=== PATIENT | female | born 1955 | race Caucasian/White ===

== ENCOUNTER → 2019-08-04 | Outpatient (CLI) | payer MEDICARE ==
[~2019-08-04] MED LIST: CYMB1CAP5 OR; DYAZ37.5 OR; LEVO75TA2 OR; LUNE2TAB OR; LUVOX; METO-743 OR; MULTIVIT; SERO1TAB OR; SKEL800T5 OR; TRAZ50TA OR; VIT D 2000
[2019-08-04 13:25] LABS: ALBUMIN 3.8 GM/DL (3.2-5.2); ALT/SGPT 22 U/L (12-78); AMYLASE 32 U/L (25-115); BILIRUBIN,DIRECT 0.1 MG/DL (0.0-0.2); BILIRUBIN,TOTAL 0.3 MG/DL (0.2-1.0); IMMUNOGLOBULIN A 63.7 MG/DL (70-400); IRON (FE) 38 UG/DL (50-170); LIPASE 75 U/L (73-393); PERCENT SATURATION 12.8 % (13.2-45.0); TOTAL IRON BINDING CAPACITY 296 UG/DL (250-450); TOTAL PROTEIN 6.6 GM/DL (6.4-8.2); TRIGLYCERIDES LEVEL 160 MG/DL (<150)
[2019-08-05 11:23] LABS: HEPATITIS B SURFACE ANTIBODY NEGATIVE (POSITIVE)
[2019-08-05 11:35] LABS: HEPATITIS B SURFACE ANTIGEN NEGATIVE (NEGATIVE)
[2019-08-05 12:03] LABS: HEPATITIS C VIRUS ABY INDEX < 0.0 INDEX (<0.8)
[2019-08-07 00:07] LABS: ANCA-ATYPICAL <1:20 titer (Neg:<1:20); ANTI-MITOCHONDRIAL ANTIBODY <20.0 Units (0.0-20.0); ANTINUCLEAR ANTIBODIES DIRECT Negative (Negative); CYTOPLASMIC NEUTROP AB ANCA-C <1:20 titer (Neg:<1:20); HEPATITIS A IgG TOTAL Positive (Negative); LIVER-KIDNEY MICROSOMAL ABY <20.1 Units (0.0-20.0); PERINUCLEAR AB ANCA-P <1:20 titer (Neg:<1:20); TISSUE TRANSGLUTAMINASE IgA <2 U/mL (0-3)
== END ==
LOC: M LAB 12:22
PROVIDERS: ATTEND Internal Medicine Gastroenterology
DX: R11.2 Nausea with vomiting, unspecified (principal); R19.7 Diarrhea, unspecified; Z79.899 Other long term (current) drug therapy; Z88.1 Allergy status to other antibiotic agents

== ENCOUNTER → 2019-08-09 | Outpatient (REF) | payer MEDICARE | LOC: M LAB REF 14:16 | PROVIDERS: ATTEND Internal Medicine Gastroenterology | DX: R11.2 Nausea with vomiting, unspecified (principal); R19.7 Diarrhea, unspecified ==

== ENCOUNTER → 2019-10-21 | Outpatient (CLI) | payer MEDICARE ==
--- NOTE | 2019-10-21 11:57 | REP ---
MAXILLOFACIAL CT STUDY WITHOUT CONTRAST: HISTORY: Atypical facial pain. CT FINDINGS: Small frontal sinuses are clear. Ethmoid and sphenoid air cells are clear. The maxillary sinuses are free of mucosal thickening as well. Mastoid aeration is normal and symmetric. Internal auditory canals are symmetric. Middle ear cavities are aerated bilaterally. Vestibular and cochlear apparatus appear intact. Deep facial soft tissues are unremarkable and symmetric. The visualized intracranial soft tissues are unremarkable. There are mild degenerative changes at C1-2 in the upper cervical spine. There is narrowing and some spurring affecting the temporomandibular joints bilaterally. The bony nasal septum is essentially midline. Nasal turbinate soft tissues are symmetric and unremarkable. The uncinate processes are not seen on either side, question previous uncinectomy. Ostiomeatal complexes are otherwise widely patent. IMPRESSION: Bilateral osteoarthritis of the temporomandibular joints. Question previous uncinate process resection bilaterally versus normal variant thinning. No evidence of paranasal sinus disease. Electronically Signed by Pietro Patel MD 10/21/2019 12:35 P
== END ==
LOC: M RAD 10:12
PROVIDERS: ATTEND Specialist
DX: M26.69 Other specified disorders of temporomandibular joint (principal)

== ENCOUNTER → 2019-12-06 | Outpatient (CLI) | payer MEDICARE ==
[~2019-12-06] MED LIST changes: +BEANTAB8 PO; +CBD OIL; +CO Q10CA PO; +COLA100C5 PO; +COQ1200C PO; +D 1010004 PO; +DICY1CAP8 PO; +FLON1SPR; +FLUT15.820; +GAVICHW PO; +GLIP10TA PO; +IMIT100T PO; +KLON0.5T PO; +LEVO112T2 PO; +METO1TAB7 PO; +METO37.5 PO; +OMEP10CASR PO; +PATIENT COMMENT; +POTA10TA14 PO; +PRAZ5CAP PO; +SAVE50TA PO; +SIMV40TA20 PO; +SPIR-10 PO; +SYNT100T PO; +TOPA50TA8 PO; +TRIA37.5 PO; +VIIB40TA PO; +WELLTAB40 PO
== END ==
LOC: M LABSMTC 11:41
PROVIDERS: ATTEND Internal Medicine Gastroenterology
DX: Z01.818 Encounter for other preprocedural examination (principal); Z11.59 Encounter for screening for other viral diseases
CPT/HCPCS: C9803; U0003

== ENCOUNTER 2019-12-11 10:06 | Day surgery (SDC) | payer MEDICARE ==
[~2019-12-11] VITALS: Ht 165.1 cm; Wt 74.8 kg
[~2019-12-11 10:06] MED LIST changes: -BEANTAB8 PO; -COQ1200C PO; -FLUT15.820; -GAVICHW PO; -IMIT100T PO; -METO1TAB7 PO; +NS 1,000 ML IV ONE; -PATIENT COMMENT; -SYNT100T PO
[2019-12-11] MEDS ORDERED: LIDOCAINE 2% 100MG/5ML SDV (FOR ANES.) As Ordered ONE (10:52)
[2019-12-11] MEDS ORDERED: propofoL 200 MG/20 ML VIAL As Ordered ONE ×2 (10:52→11:22)
[2019-12-11] MEDS ORDERED: fentaNYL 100 MCG/2 ML INJECTION (J3010) As Ordered ONE (10:59)
--- NOTE | 2019-12-11 11:07 | ROOR ---
Patient Name: Cathie De La Paz Procedure Date: 12/11/2019 10:49 AM Date of : 1955 Age: 64 Room: [facility] Gender: Female Note Status: Finalized Procedure: Upper GI endoscopy Indications: Heartburn, Endoscopy to assess diarrhea in patient suspected of having disease of the small-bowel Providers: Caleb SPEARS MD Referring MD: Rodrigo WOLFF MD Requesting Provider: Medicines: Monitored Anesthesia Care Complications: No immediate complications. Procedure: Pre-Anesthesia Assessment: - The heart rate, respiratory rate, oxygen saturations, blood pressure, adequacy of pulmonary ventilation, and response to care were monitored throughout the procedure. The Endoscope was introduced through the mouth, and advanced to the second part of duodenum. The upper GI endoscopy was accomplished without difficulty. The patient tolerated the procedure well. Findings: The examined esophagus was normal. The Z-line was regular and was found 39 cm from the incisors. A single 5 mm sessile fundic gland polyp was found in the gastric fundus. The polyp was removed with a jumbo cold forceps. Resection and retrieval were complete. The entire examined stomach was normal. The examined duodenum was normal. Biopsies for histology were taken with a cold forceps for evaluation of celiac disease. Impression: - Normal esophagus. - Z-line regular, 39 cm from the incisors. - A single fundic gland polyp. Resected and retrieved. - Otherwise normal stomach. - Normal examined duodenum. Biopsied. Recommendation: - Observe patient's clinical course. - Continue present medications. - May use Gaviscon as needed in addition to Omeprazole twice a day. Caleb Spears MD Caleb SPEARS MD 12/11/2019 11:06:32 AM Electronically signed by Caelb SPEARS MD Number of Addenda: 0 Note Initiated On: 12/11/2019 10:49 AM Estimated Blood Loss: Estimated blood loss: none.
--- NOTE | 2019-12-11 11:31 | ROOR ---
Patient Name: Cathie De La Paz Procedure Date: 12/11/2019 10:50 AM Date of : 1955 Age: 64 Room: [facility] Gender: Female Note Status: Finalized Procedure: Colonoscopy Indications: Clinically significant diarrhea of unexplained origin, Change in bowel habits Providers: Caleb SPEARS MD Referring MD: Rodrigo WOLFF MD Requesting Provider: Medicines: Monitored Anesthesia Care Complications: No immediate complications. Procedure: Pre-Anesthesia Assessment: - The heart rate, respiratory rate, oxygen saturations, blood pressure, adequacy of pulmonary ventilation, and response to care were monitored throughout the procedure. The Colonoscope was introduced through the anus and advanced to the terminal ileum, with identification of the appendiceal orifice and IC valve. The colonoscopy was performed without difficulty. The patient tolerated the procedure well. The quality of the bowel preparation was fair. Findings: The perianal and digital rectal examinations were normal. Three sessile polyps were found in the ascending colon and cecum. The polyps were diminutive in size. These polyps were removed with a cold snare. Resection and retrieval were complete. Mild sigmoid diverticulosis and moderate internal hemorrhoids. Biopsies for histology were taken with a cold forceps for evaluation of microscopic colitis. The terminal ileum appeared normal. Impression: - Colon preparation was fair. - Three diminutive polyps in the ascending colon and in the cecum, removed with a cold snare. Resected and retrieved. - Mild sigmoid diverticulosis and moderate internal hemorrhoids. - The colon is otherwise normal. - The examined portion of the ileum was normal. - Biopsies were taken with a cold forceps for evaluation of microscopic colitis. - (Irritable Bowel Syndrome/IBS suspected.) Recommendation: - Repeat colonoscopy in 3 years because the bowel preparation was fair/suboptimal. - Repeat colonoscopy in 3 years for surveillance. - Telephone endoscopist for pathology results in 2 weeks. Caleb Spears MD Caleb SPEARS MD 12/11/2019 11:31:43 AM Electronically signed by Caleb SPEARS MD Number of Addenda: 0 Note Initiated On: 12/11/2019 10:50 AM Estimated Blood Loss: Estimated blood loss: none.
[2019-12-11 11:50] VITALS: BP 92/53
== END 2019-12-11 12:05 | disposition home or self-care (01) ==
LOC: M OPP 10:06
PROVIDERS: ATTEND Internal Medicine Gastroenterology
DX: D12.0 Benign neoplasm of cecum (principal); K57.30 Diverticulosis of large intestine without perforation or abscess without bleeding; R19.7 Diarrhea, unspecified; K31.7 Polyp of stomach and duodenum; R12 Heartburn; E11.9 Type 2 diabetes mellitus without complications; E03.9 Hypothyroidism, unspecified; K21.9 Gastro-esophageal reflux disease without esophagitis; Z79.899 Other long term (current) drug therapy; Z88.8 Allergy status to other drugs, medicaments and biological substances
CPT/HCPCS: 43239; 45380; 45385; 88305; J3010

== ENCOUNTER 2020-03-24 20:19 | Inpatient (IN) | payer MEDICARE ==
[~2020-03-24 20:19] MED LIST changes: -NS 1,000 ML IV ONE
[2020-03-24] MEDS ORDERED: HumaLOG INSULIN (NovoLOG) PER UNIT SC SCH (21:00)
[2020-03-24] MEDS ORDERED: DEXTROSE 50% 50 ML SYRINGE IV PRN (21:15)
[2020-03-24] MEDS ORDERED: MAALOX 30 ML SUSP *UDC PO PRN (21:15)
[2020-03-24] MEDS ORDERED: GLUCOSE 4GM CHEW TABLET PO PRN (21:15)
[2020-03-24] MEDS ORDERED: GLUCAGON INJ 1MG VIAL SC PRN (21:15)
[2020-03-24] MEDS ORDERED: MOM 30ML SUSPENSION UDC PO PRN (21:15)
[2020-03-24 22:40] VITALS: BP 115/78
--- NOTE | 2020-03-24 23:11 | HPEPDOC ---
[facility] Medical History & Physical Date of Admission Mar 24, 2020 Date of Service: Mar 24, 2020 Attending Physician: CHIRAG DEL RIO MD History and Physical TIME OF SERVICE: 1156 PM CHIEF COMPLAINT:Altered mental status HISTORY OF PRESENT ILLNESS: The majority of the history was obtained from ER staff. The patient was unresponsive at the time of my evaluation This 64-year-old female has been feeling depressed. Yesterday evening at around 3 PM she went to lie down. Her went to check on her, about 2-1/2 hours later and he found her in an unresponsive state. He didn't check her pulse, but he started CPR and [id number]. EMS was contacted and the automotive sales professional who was the first to arrive placed an AED on the patient's chest, which advised against administering any shocks. When EMS arrived, they did that she was breathing on her own and that she had a pulse. They gave her Narcan, but she remained altered. Per d/w Caleb Albarran PA-C the patient's vitals were wnl except for a RR of 8 . Her CBC, CMP, coags, ammonia and VBG, were unrevealing. The UA was positive for ketones, while the drug screen was positive for benzos which she takes chronically. Flumazenil was not given. The EKG showed normal sinus rhythm with a rate of 79, while CT of the head and chest x-ray were reported to be unremarkable. REVIEW OF SYSTEMS: uable to obtain because of the patient's mental status PAST MEDICAL/ SURGICAL HISTORY: CKD IIIB Chronic HTN Dyslipidemia BPV Migraines Hypothyroidism GERD DJD Irritable bowel syndrome with constipation Type 2 diabetes SOCIAL HISTORY: Former smoker Lives with her FAMILY HISTORY: Unobtainable ALLERGIES: Please see below. HOME MEDICATIONS: Please see below. PHYSICAL EXAMINATION: Vital Signs Date Time Temp Pulse Resp B/P (MAP) Pulse Ox O2 Delivery O2 Flow Rate FiO2 03/24/20 22:40 98.2 76 16 115/78 (90) 97 Room Air GEN: well-nourished / well developed/ NAD INTEGUMENT: not flushed/ not jaundice HEENT: lips acyanotic /mucus membranes moist and pink CVS: RRR/NMRG/ radial / no lower extremity edema LUNGS: lungs are clear to auscultation bilaterally on room air ABDOMEN: Contour (flat) / soft & she doesn't grimace with palpation MSK/EXTREMITIES: NCAT NEURO: resists opening eye-lids for pupil exam / left eye deviates to left when pryed open PSYCH: unarousable / grimaces with sternal rub LABORATORY DATA: 03/24/20 23:55 IMAGING: see HPI ASSESSMENT: is a 64-year-old with a history of CKD IIIB HTN, dyslipidemia, BPV, migraines, hypothyroidism, GERD and IDDM who presented to [facility] with altered mental status , unclear cause. She was transferred here for higher level of care. PLAN: 1. Encephalopathy Differential includes benzo OD, thyroid disorder B12 or B1 deficiency, post- ictal state, catatonia or ther cause TBD Plan: admit to medical floor/ neurochecks / f/u accuchecks B12, B1, TSH / continuous pulse ox day time team may consider ordering MRI brain w gadolinium to r/o brain mass, EEG and or Psych consult / hold sedating meds (clonazepam, bupropion, milnacipran, vilazodone, topiramate, dicyclomine) 2. NIDDM Plan: will start D5NS while NPO / diabetic diet when more alert / f/u accuchecks & A1C / hypoglycemia protocol / sliding scale insulin / hold glipizide 3. Depression Plan: hold bupropion & vilazodone until more alert 4. Chronic HTN Plan: metoprolol, spironolactone, triamterene, hydrochlorothiazide 5. Dyslipidemia Plan: Simvastatin 6. Migraines Plan: hold sumatriptan & topiramate until more alert 7. CKD IIIB Plan: f/u BMP 8. Hypothyroidism Plan: levothyroxine 9. GERD Plan: hold omeprazole until more alert 10. IBS-D Plan: hold dicyclomine until more alert DVT PROPHYLAXIS: lovenox DISPOSITION: home after more than 2 midnight's stay Home Medications Scheduled Eomig-L-Raogjrescpmou (Beano) 150 Unit Tablet, 2 TAB PO AC Bupropion HCl (Wellbutrin Xl) 300 Mg Tab.er.24h, 300 MG PO DAILY Cholecalciferol (Vitamin D3) (Vitamin D3) 25 Mcg Capsule, 25 MCG PO QHS Clonazepam (Klonopin) 0.5 Mg Tablet, 0.5 MG PO BID Docusate Sodium (Colace) 100 Mg Capsule, 100 MG PO BID Fluticasone Propionate (Fluticasone Propionate) 15.8 Ml [place].susp, 2 SPRAYS NA DAILY Glipizide (Glipizide) 10 Mg Tablet, 5 MG PO QHS Levothyroxine Sodium (Synthroid) 100 Mcg Tablet, 100 MCG PO DAILY Metoprolol Succinate (Metoprolol Succinate) 50 Mg Tab.er.24h, 50 MG PO DAILY Milnacipran HCl (Savella) 50 Mg Tablet, 50 MG PO BID Omeprazole (Omeprazole) 10 Mg Capsule.dr, 20 MG PO BID Potassium Chloride (Potassium Chloride) 10 Meq Tablet.er, 20 MEQ PO BID Prazosin Hcl (Prazosin HCl) 5 Mg Capsule, 5 MG PO QHS Simvastatin (Simvastatin) 40 Mg Tablet, 40 MG PO QHS Spironolactone (Spironolactone) 25 Mg Tablet, 25 MG PO DAILY Topiramate (Topamax) 50 Mg Tablet, 50 MG PO BID Triamterene/Hydrochlorothiazid (Triamterene-Hctz 37.5-25 mg Tb) 1 Each Tablet, 1 TAB PO DAILY Ubidecarenone (Co Q-10) 200 Mg Capsule, 200 MG PO QHS Vilazodone HCl (Viibryd) 40 Mg Tablet, 40 MG PO DAILY Scheduled PRN Dicyclomine HCl (Dicyclomine HCl) 10 Mg Capsule, 10 MG PO Q6H PRN for CRAMPS CAN TAKE EXTRA CAPSULE PER DOSE Mag/Aluminum/Sod Bicarb/Alginc (Gaviscon 80-14.2 mg Tab Chew) 1 Each Tab.chew, 2 TAB PO ACHS PRN for ACID REFLUX Sumatriptan Succinate (Imitrex) 100 Mg Tablet, 100 MG PO DAILY PRN for MIGRAINE Miscellaneous Medications [Patient Comment] PATIENT IS UNRESPONSIVE. MED REC COMPLETED VIA EXTERNAL MED HISTORY AND PATIENT MED LIST IN [facility] Allergies Coded Allergies: clarithromycin (Verified Allergy, Unknown, 12/09/19) A-FIB/CHADSVASC A-FIB History Current/History of A-Fib/PAF?: No Current PO Anticoag Therapy: No CHIRAG DEL RIO MD Mar 24, 2020 23:11
[2020-03-25] MEDS ORDERED: BEANTAB8 PO (00:19)
[2020-03-25] MEDS ORDERED: FLUT15.820 (00:19)
[2020-03-25] MEDS ORDERED: GAVICHW PO (00:19)
[2020-03-25] MEDS ORDERED: IMIT100T PO (00:19)
[2020-03-25] MEDS ORDERED: METO1TAB7 PO (00:19)
[2020-03-25] MEDS ORDERED: SYNT100T PO (00:19)
[2020-03-25] MEDS ORDERED: COQ1200C PO (00:19)
[2020-03-25] MEDS ORDERED: PATIENT COMMENT (00:21)
[2020-03-25 00:38] LABS: BLOOD UREA NITROGEN 18 MG/DL (7-18); CALCIUM LEVEL 9.1 MG/DL (8.8-10.2); CARBON DIOXIDE LEVEL 26 MEQ/L (21-32); CHLORIDE LEVEL 109 MEQ/L (98-107); CREATININE FOR GFR 0.89 MG/DL (0.55-1.30); GLOMERULAR FILTRATION RATE > 60.0 (>45); GLUCOSE, FASTING 79 MG/DL (70-100); POTASSIUM SERUM 3.9 MEQ/L (3.5-5.1); SODIUM LEVEL 144 MEQ/L (136-145); THYROID STIMULATING HORMONE 0.678 uIU/ML (0.358-3.740)
[2020-03-25 00:42] LABS: BASO # 0.1 10^3/uL (0.0-0.2); BASO % 0.8 % (0.0-1.0); EOS # 0.1 10^3/uL (0.0-0.5); EOS % 1.3 % (0.0-3.0); HEMATOCRIT 39.9 % (36.0-47.0); HEMOGLOBIN 12.7 g/dl (12.0-15.5); LYMPH # 2.5 10^3/uL (1.5-5.0); LYMPH % 28.9 % (24.0-44.0); MEAN CORPUSCULAR HEMOGLOBIN 30.4 pg (27.0-33.0); MEAN CORPUSCULAR HGB CONC 31.8 g/dl (32.0-36.5); MEAN CORPUSCULAR VOLUME 95.5 fl (80.0-96.0); MONO # 0.7 10^3/uL (0.0-0.8); MONO % 8.4 % (0.0-5.0); NEUTROPHILS # 5.2 10^3/uL (1.5-8.5); NEUTROPHILS % 60.2 % (36.0-66.0); PLATELET COUNT, AUTOMATED 214 10^3/uL (150-450); RED BLOOD COUNT 4.18 10^6/uL (4.00-5.40); WHITE BLOOD COUNT 8.6 10^3/uL (4.0-10.0)
[2020-03-25 00:43] LABS: HEMATOCRIT 39.9 % (36.0-47.0)
[2020-03-25] MEDS ORDERED: SUMAtriptan SUCCINATE 25 MG TAB PO PRN (01:30)
[2020-03-25] MEDS: D5W/0.9% SODIUM CHLORIDE 1,000 ML IV SCH ×2 (02:43→20:35)
[2020-03-25 06:00] VITALS: BP 121/72
[2020-03-25] MEDS ORDERED: LEVOTHYROXINE 100MCG TABLET (0.1MG) PO SCH (06:00)
[2020-03-25] MEDS ORDERED: LEVOTHYROXINE 75MCG TABLET (0.075MG) PO SCH (06:00)
[2020-03-25] MEDS: HumaLOG INSULIN (NovoLOG) PER UNIT SC SCH ×3 (06:00→17:25)
[2020-03-25] MEDS ORDERED: HumaLOG INSULIN (NovoLOG) PER UNIT SC SCH (07:30)
[2020-03-25 08:44] VITALS: BP 111/75
[2020-03-25] MEDS ORDERED: CYANOCOBALAMIN 1,000MCG/ML VIAL (J3420) IM SCH (09:00)
[2020-03-25] MEDS ORDERED: THIAMINE 100 MG TAB PO SCH (09:00)
[2020-03-25] MEDS ORDERED: DYAZIDE 37.5/25 CAP (TRIAM/HCTZ) PO SCH (09:00)
[2020-03-25] MEDS ORDERED: DOCUSATE SODIUM 100 MG CAP PO SCH (09:00)
[2020-03-25] MEDS ORDERED: FOLIC ACID 1 MG TAB PO SCH (09:00)
[2020-03-25] MEDS ORDERED: SPIRONOLACTONE 25 MG TAB PO SCH (09:00)
[2020-03-25] MEDS ORDERED: METOPROLOL SUCC (TopROL XL) 50MG **XL** TAB PO SCH (09:00)
[2020-03-25] MEDS ORDERED: ENOXAPARIN 40MG/0.4ML SYRINGE (J1650 PER 10MG) SC SCH (09:00)
[2020-03-25 09:05] VITALS: O2SAT 95
[2020-03-25 09:53] LABS: VITAMIN B12 LEVEL 209 PG/ML (247-911)
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
--- NOTE | 2020-03-25 11:20 | REP ---
INDICATION: ams. COMPARISON: None. TECHNIQUE: Helical scanning is acquired. 5 mm axial images were reformatted. Coronal MPR images were generated. FINDINGS: Bone window settings demonstrate an intact bony calvarium. There is no evidence of skull fracture or incidental bony calvarial lesion. The visualized paranasal sinuses appear clear. No intraorbital abnormality is seen. On soft tissue window setting images; the lateral, third, and fourth ventricles are normal in size and position. Stallworth-white differentiation pattern is normal above and below the tentorium. There are is no evidence of intracranial hemorrhage. No mass, edema, infarction, or midline shift is seen. No extra-axial fluid collection is appreciated. IMPRESSION: Negative noncontrast head CT. <Electronically signed by August Patel > 03/25/20 [id number]
--- NOTE | 2020-03-25 12:08 | REP ---
INDICATION: rib pain. COMPARISON: None. FINDINGS: The superior mediastinal structures are midline. The cardiac silhouette is unremarkable in size, shape, and position. The diaphragmatic surfaces of the lungs are regular, and the costophrenic angles are clear. The pulmonary bustamante are clear. The imaged osseous structures are intact. IMPRESSION: There is no acute cardiopulmonary disease. <Electronically signed by Morales Montelongo > 03/25/20 [id number]
[2020-03-25] MEDS: ACETAMINOPHEN TAB 650MG DOSE (2X325MG) PO PRN ×2 (13:28→20:36)
[2020-03-25 14:00] VITALS: BP 110/72
[2020-03-25] MEDS ORDERED: SIMVASTATIN 40 MG TAB PO SCH (21:00)
[2020-03-25 22:00] VITALS: BP 134/93
[2020-03-26] MEDS: HumaLOG INSULIN (NovoLOG) PER UNIT SC SCH
--- NOTE | 2020-03-26 03:14 | DS.PDOC ---
Discharge Summary General Date of Admission Mar 25, 2020 at 14:42 Date of Discharge Mar 26 2020 @ 220am Attending Physician: LAKESHA JUDD MD Discharge Summary PROCEDURES PERFORMED DURING STAY: [None]. ADMITTING DIAGNOSES: 1. Encephalopathy - Differential includes benzo OD, thyroid disorder B12 or B1 deficiency, post-ictal state, catatonia or ther cause TBD 2. NIDDM 3. Depression 4. Chronic HTN 5. Dyslipidemia 6. Migraines 7. CKD IIIB 8. Hypothyroidism 9. GERD 10. IBS-D DISCHARGE DIAGNOSES: 1. Encephalopathy possibly 2/2 Catatonia vs Benzo OD -resolved 2. Transient amnesia - resolved 3. B12 deficiency 4. NIDDM 5. Depression 6. Chronic HTN 7. Dyslipidemia 8. Migraines 9. CKD IIIB 10. Hypothyroidism 11. GERD 12. IBS-D COMPLICATIONS/CHIEF COMPLAINT: Encephalopathy. HISTORY OF PRESENT ILLNESS: Per HPI "The majority of the history was obtained from ER staff. The patient was unresponsive at the time of my evaluation This 64-year-old female has been feeling depressed. Yesterday evening at around 3 PM she went to lie down. Her went to check on her, about 2-1/2 hours later and he found her in an unresponsive state. He didn't check her pulse, but he started CPR and [id number]. EMS was contacted and the who was the first to arrive placed an AED on the patient's chest, which advised against administering any shocks. When EMS arrived, they did that she was breathing on her own and that she had a pulse. They gave her Narcan, but she remained altered. Per d/w Caleb Albarran PA-C at [facility] the patient's vitals were wnl except for a RR of 8. Her CBC, CMP, coags, ammonia and VBG, were unrevealing. The UA was positive for ketones, while the drug screen was positive for benzos which she takes chronically. Flumazenil was not given. The EKG show ed normal sinus rhythm with a rate of 79, while CT of the head and chest x-ray were reported to be unremarkable." HOSPITAL COURSE: She was transferred from [facility] to [facility] and admitted to the medical floor. Repeat chest xray and CT of the head were unrevealing. Repeat blood work was remarkable for B12 deficiency. On the morning of Mar 25 she woke- up was noted to be conversational, but couldn't remember how she came to the hospital, or that she was . Just after midnight on Mar 26 she was able to recall all events in detail leading up to her hospital admission, including the time that she went to take a nap, that her and a business analysis analyst tried CPR, and various people she encountered at [facility] and [facility]. She reported that she wanted to leave AMA because of her treatment during her stay in the hospital; she denied SI or HI. She had tried to call her but there was no response. She also called her daughter who declined to pick her up. She verbalized understanding the risks of leaving AMA including but not limited to reoccurrence of the catatonic episode, and hypothermia because she didn't have a means of transport home. We also informed her that she still had an MRI of the brain and potential Neuro and Psych evaluations pending. She declined to sign the AMA form. She didn't have a clear plan in terms of how she was going to walk home and was only dressed in a hospital t-shirt, hospital pants and socks. Prior to allowing her to leave I discussed her case with and to determine if she had enough capacity to leave AMA the patient absconded. Due to concerns for her safety and health while she was attempting to walk home in the dark in the cold with inadequate clothing we called the police to bring her back to the hospital. DISCHARGE MEDICATIONS: Please see below. ALLERGIES: Please see below. PHYSICAL EXAMINATION ON DISCHARGE: VITAL SIGNS: Please see below. GENERAL:anxious/ teary NEUROLOGICAL EXAMINATION: gait normal PSYCHIATRIC EXAMINATION: A&O to person and place / able to recall all events, various people she encountered and time line of events LABORATORY DATA: Please see below. IMAGING: CT HEAD 03.25.20 "IMPRESSION:Negative noncontrast head CT." CHEST XRAY 03.25.20 "IMPRESSION: There is no acute cardiopulmonary disease." PROGNOSIS:guarded DISCHARGE PLAN: left AMA DISPOSITION: Against Medical Advice. ITEMS TO FOLLOWUP ON ON OUTPATIENT: 1. Depression 2. Possible Benzo OD 3. Possible Catatonia 4. B12 deficiency DISCHARGE CONDITION: [Stable]. TIME SPENT ON DISCHARGE: Approximately 60 min Vital Signs/I&Os Vital Signs Date Time Temp Pulse Resp B/P (MAP) Pulse Ox O2 Delivery O2 Flow Rate FiO2 03/25/20 22:00 98.4 98 16 134/93 (107) 99 Room Air I&O- Last 24 Hours up to 6 AM 03/26/20 06:00 Intake Total 300 ml Output Total 650 ml Balance -350 ml Laboratory Data Labs 24H Laboratory Tests 2 03/25/20 05:49: Bedside Glucose (Misc Panel) 93 03/25/20 06:28: 03/25/20 11:56: Bedside Glucose (Misc Panel) 98 03/25/20 16:37: Bedside Glucose (Misc Panel) 105 03/25/20 23:51: Bedside Glucose (Misc Panel) 110 FSBS Laboratory Tests Test 03/25/20 05:49 03/25/20 11:56 03/25/20 16:37 03/25/20 23:51 Range/Units Bedside Glucose (Misc Panel) 93 98 105 110 80-115 MG/DL Discharge Medications Scheduled Buvme-D-Wxsvtxzuxdpfb (Beano) 150 Unit Tablet, 2 TAB PO AC, (Reported) Bupropion HCl (Wellbutrin Xl) 300 Mg Tab.er.24h, 300 MG PO DAILY, (Reported) Cholecalciferol (Vitamin D3) (Vitamin D3) 25 Mcg Capsule, 25 MCG PO QHS, (Reported) Clonazepam (Klonopin) 0.5 Mg Tablet, 0.5 MG PO BID, (Reported) Docusate Sodium (Colace) 100 Mg Capsule, 100 MG PO BID, (Reported) Fluticasone Propionate (Fluticasone Propionate) 15.8 Ml [place].susp, 2 SPRAYS NA DAILY, (Reported) Glipizide (Glipizide) 10 Mg Tablet, 5 MG PO QHS, (Reported) Levothyroxine Sodium (Synthroid) 100 Mcg Tablet, 100 MCG PO DAILY, (Reported) Metoprolol Succinate (Metoprolol Succinate) 50 Mg Tab.er.24h, 50 MG PO DAILY, (Reported) Milnacipran HCl (Savella) 50 Mg Tablet, 50 MG PO BID, (Reported) Omeprazole (Omeprazole) 10 Mg Capsule.dr, 20 MG PO BID, (Reported) Potassium Chloride (Potassium Chloride) 10 Meq Tablet.er, 20 MEQ PO BID, (Reported) Prazosin Hcl (Prazosin HCl) 5 Mg Capsule, 5 MG PO QHS, (Reported) Simvastatin (Simvastatin) 40 Mg Tablet, 40 MG PO QHS, (Reported) Spironolactone (Spironolactone) 25 Mg Tablet, 25 MG PO DAILY, (Reported) Topiramate (Topamax) 50 Mg Tablet, 50 MG PO BID, (Reported) Triamterene/Hydrochlorothiazid (Triamterene-Hctz 37.5-25 mg Tb) 1 Each Tablet, 1 TAB PO DAILY, (Reported) Ubidecarenone (Co Q-10) 200 Mg Capsule, 200 MG PO QHS, (Reported) Vilazodone HCl (Viibryd) 40 Mg Tablet, 40 MG PO DAILY, (Reported) Scheduled PRN Dicyclomine HCl (Dicyclomine HCl) 10 Mg Capsule, 10 MG PO Q6H PRN for CRAMPS, (Reported) CAN TAKE EXTRA CAPSULE PER DOSE Mag/Aluminum/Sod Bicarb/Alginc (Gaviscon 80-14.2 mg Tab Chew) 1 Each Tab.chew, 2 TAB PO ACHS PRN for ACID REFLUX, (Reported) Sumatriptan Succinate (Imitrex) 100 Mg Tablet, 100 MG PO DAILY PRN for MIGRAINE, (Reported) Miscellaneous Medications [Patient Comment] , (Reported) PATIENT IS UNRESPONSIVE. MED REC COMPLETED VIA EXTERNAL MED HISTORY AND PATIENT MED LIST IN [place] [employer] Allergies Coded Allergies: clarithromycin (Verified Allergy, Unknown, 12/09/19) CHIRAG DEL RIO MD Mar 26, 2020 03:14
== END 2020-03-26 01:54 | disposition left against medical advice (07) | DRG 71 ==
LOC: M ED INP 22:25 → M MSPAV 22:26 → OBSVTOIN 03-25 14:42
PROVIDERS: ADMIT Internal Medicine; ATTEND Internal Medicine
DX: G93.40 Encephalopathy, unspecified (principal); F20.2 Catatonic schizophrenia; T42.4X4A Poisoning by benzodiazepines, undetermined, initial encounter; K21.9 Gastro-esophageal reflux disease without esophagitis; G43.909 Migraine, unspecified, not intractable, without status migrainosus; E78.5 Hyperlipidemia, unspecified; E11.9 Type 2 diabetes mellitus without complications; E53.8 Deficiency of other specified B group vitamins; N18.32 Chronic kidney disease, stage 3b; E03.9 Hypothyroidism, unspecified; F32.9 Major depressive disorder, single episode, unspecified; Z79.899 Other long term (current) drug therapy; Z88.8 Allergy status to other drugs, medicaments and biological substances

== ENCOUNTER 2020-03-26 03:25 | Emergency (ER) | payer MEDICARE ==
[~2020-03-26] VITALS: Ht 167.6 cm; Wt 73.6 kg
[~2020-03-26 03:25] MED LIST changes: +BEANTAB8 PO; +COQ1200C PO; +FLUT15.820; +GAVICHW PO; +IMIT100T PO; +METO1TAB7 PO; +PATIENT COMMENT; +SYNT100T PO
[2020-03-26 03:30] VITALS: BP 141/91
[2020-03-26] MEDS ORDERED: NS 1,000 ML IV ONE (04:15)
--- NOTE | 2020-03-26 04:45 | REPVR ---
PROCEDURE INFORMATION: Exam: CT Head Without Contrast Exam date and time: 03/26/2020 4:20 AM Age: 64 years old Clinical indication: Altered mental status/memory loss TECHNIQUE: Imaging protocol: Computed tomography of the head without contrast. Radiation optimization: All CT scans at this facility use at least one of these dose optimization techniques: automated exposure control; mA and/or kV adjustment per patient size (includes targeted exams where dose is matched to clinical indication); or iterative reconstruction. COMPARISON: CT Head without contrast 2020-03-25 10:58 FINDINGS: Brain: Diffuse mild cerebral age related volume loss. Mild patchy low attenuation in the white matter compatible with mild chronic small vessel ischemic disease. No midline shift, mass, fluid collection, or evidence of hemorrhage. Cerebral ventricles: Ventricular enlargement proportional to volume loss. Bones/joints: Unremarkable. No acute fracture. Paranasal sinuses: Visualized sinuses are unremarkable. No fluid levels. Mastoid air cells: Visualized mastoid air cells are well aerated. Soft tissues: Unremarkable. IMPRESSION: Mild involutional changes, no acute intracranial abnormality. Electronically signed by: Caleb Marcos On 03/26/2020 04:45:22 AM
== END 2020-03-26 05:49 | disposition home or self-care (01) ==
LOC: M ED 03:25
DX: R41.82 Altered mental status, unspecified (principal); E11.9 Type 2 diabetes mellitus without complications; I10 Essential (primary) hypertension; G89.29 Other chronic pain; M54.9 Dorsalgia, unspecified; F33.9 Major depressive disorder, recurrent, unspecified; Z88.1 Allergy status to other antibiotic agents; Z79.899 Other long term (current) drug therapy

== ENCOUNTER → 2021-07-04 | Outpatient (REF) | payer MEDICARE ==
[~2021-07-04] MED LIST changes: +BEANO150 UNIT PO; -BEANTAB8 PO; -POTA10TA14 PO; +POTA1TAB24 PO
== END ==
LOC: M LAB REF 17:26
PROVIDERS: ATTEND Internal Medicine Nephrology
DX: E11.22 Type 2 diabetes mellitus with diabetic chronic kidney disease (principal); I12.9 Hypertensive chronic kidney disease with stage 1 through stage 4 chronic kidney disease, or unspecified chronic kidney disease; N18.31 Chronic kidney disease, stage 3a